=== PATIENT | female | born 1995 | race Caucasian/White ===

== ENCOUNTER 2018-06-14 01:08 | Emergency (ER) | payer OTHER ==
[~2018-06-14] VITALS: Ht 167.6 cm; Wt 90.0 kg
[2018-06-14 05:00] VITALS: BP 121/76
[2018-06-14] MEDS ORDERED: PredniSONE 20 MG TABLET PO ONE (05:00)
[2018-06-14] MEDS ORDERED: DiphenhydrAMINE HCL 50 MG/ML VIAL IM ONE (05:00)
== END 2018-06-14 05:24 | disposition home or self-care (01) ==
LOC: EMS 01:09
DX: T78.40XA Allergy, unspecified, initial encounter (principal); X58.XXXA Exposure to other specified factors, initial encounter
CPT/HCPCS: 96372; 99283; J1200; J7512